=== PATIENT | male | born 1960 | race Caucasian/White ===

== ENCOUNTER 2018-06-20 20:43 | Emergency (ER) | payer OTHER ==
[2018-06-20] MEDS ORDERED: LACTATED RINGERS 1,000 ML IV ONE (20:44)
[2018-06-20] MEDS ORDERED: EPINEPHRINE HCL 0.1 MG/ML SOL IV ONE (20:48)
[2018-06-20 22:18] VITALS: O2SAT 89
[2018-06-20 22:35] VITALS: PULSE 105
[2018-06-20] MEDS ORDERED: EPINEPHRINE 1:10,000 PREFILL 0.1 MG/ML SOL ONE (23:02)
== END 2018-06-20 20:55 | disposition expired | DRG 298 ==
LOC: ED 20:43
DX: I46.9 Cardiac arrest, cause unspecified (principal)
CPT/HCPCS: 96365; 96374; 99291